=== PATIENT | male | born 1945 | race Caucasian/White ===

== ENCOUNTER → 2016-11-14 | Outpatient (CLI) | payer MEDICARE | END | disposition home or self-care (01) | LOC: LAB 14:18 | DX: S99.921A Unspecified injury of right foot, initial encounter (principal); X58.XXXA Exposure to other specified factors, initial encounter; Y92.9 Unspecified place or not applicable ==

== ENCOUNTER → 2017-02-02 | Outpatient (CLI) | payer MEDICARE ==
--- NOTE | 2017-02-02 10:55 | Diagnostic Imaging Report ---
Indications: Right hallux pain and swelling, history of fracture October 2016 Technique: 3 views right foot Findings: Comparison: No prior examinations available for comparison There is oblique fracture through the base of the first distal phalanx, extending to the proximal articular surface. The proximal fragment maintains alignment with the middle phalanx, with mild asymmetric widening of the interphalangeal joint space. The distal fragment demonstrates partial bone with lateral and plantar displacement. Fracture cleft is lucent with marginal irregularity. Some periosteal callus formation is suggested on lateral view. Surrounding soft tissues are swollen. No additional fracture, dislocation, lytic destruction, periosteal reaction, soft tissue swelling/foreign body/gas or other acute change identified IMPRESSION: Delayed union of displaced intra-articular fracture base first distal phalanx with fracture margin irregularity and surrounding soft tissue swelling. Underlying infection not excludable.
== END | disposition home or self-care (01) ==
LOC: RAD 10:03
DX: M25.571 Pain in right ankle and joints of right foot (principal); S92.421G Displaced fracture of distal phalanx of right great toe, subsequent encounter for fracture with delayed healing; X58.XXXD Exposure to other specified factors, subsequent encounter

== ENCOUNTER → 2017-02-04 | Outpatient (CLI) | payer MEDICARE ==
--- NOTE | 2017-02-04 13:39 | Diagnostic Imaging Report ---
Indication: Right great toe fracture. Possible infection causing slow healing Technique: Sagittal, axial, and coronal T1 fast spin echo and FSE STIR images of the forefoot. Precontrast and postcontrast coronal and sagittal T1 fat saturated images of the forefoot Comparison: Reference made to plain radiographs dated 02/02/2017 Findings: There is a fracture deformity of the first distal phalanx. This is displaced, better visualized on recent plain radiographs. The proximal fragment demonstrates markedly decreased T1 signal and markedly increased STIR signal. The distal fragment demonstrates increased STIR signal, some abnormal decreased T1 signal but much less striking than that involving the proximal fragment. Abnormal signal is seen in the first proximal phalanx. There is diffuse abnormal STIR signal, involving nearly the entire phalanx, sparing only a small portion of the base. There is less extensive T1 signal decrease, primarily involving the distal shaft and head. There is considerable circumferential edema of the soft tissues surrounding the first phalanx. The precontrast T1 fat-saturated images demonstrate considerable edema of the distal phalanx on both sides of the fracture, somewhat less striking edema of the proximal phalanx. Moderate contrast enhancement of the proximal phalanx and considerable contrast enhancement of the distal phalanx is demonstrated. There is enhancement of the surrounding soft tissues, but no findings to suggest the presence of focal drainable fluid collection. There is what appears to be a soft tissue ulcer on the plantar surface superficial to the head of the fourth metacarpal. No other marrow signal abnormality is demonstrated. There is mild soft tissue edema elsewhere within the forefoot, more within the muscular compartments and the superficial compartment. Impression: Fracture of the first distal phalanx, better characterized on plain radiograph of 2 days earlier Marked marrow edema of the first distal phalanx. This certainly could be due solely to the presence of the fracture. However, giving the intensity of the signal abnormality, the presence of fairly intense contrast enhancement, and the evidence of surrounding soft tissue cellulitis, findings are concerning for osteomyelitis Marrow edema of the first proximal phalanx. Given the absence of evidence of trauma, evidence of surrounding soft tissue cellulitis, and presence of contrast enhancement, this finding is concerning for osteomyelitis Evidence of cellulitis, as described above. This appears to be superficial in the great toe, but appears to involve the deep compartments in the metacarpal region. No drainable fluid collection demonstrated Evidence of soft tissue ulcer on the plantar surface adjacent to the fourth metatarsal head. Correlate with clinical findings
== END | disposition home or self-care (01) ==
LOC: MRI 09:49
DX: S92.411G Displaced fracture of proximal phalanx of right great toe, subsequent encounter for fracture with delayed healing (principal); X58.XXXD Exposure to other specified factors, subsequent encounter; M86.9 Osteomyelitis, unspecified
CPT/HCPCS: 73723; A9585

== ENCOUNTER 2017-09-04 11:08 | Outpatient (CLI) | payer MEDICARE ==
--- NOTE | 2017-09-04 13:51 | Diagnostic Imaging Report ---
Indication: Chest pain Technique: Continuous helical transaxial imaging of the chest was obtained from the thoracic inlet to the upper abdomen. No intravenous contrast was administered. Coronal 2-D reformats were also obtained. Total Dose length Product (DLP): [address] Dose Index Volume (CTDIvol): 0.15, 17.67 mGy Comparison: none Findings: Lungs are clear. No infiltrate or interstitial disease identified. No pleural effusion or adenopathy identified. The heart is unremarkable. Aorta shows mild neural calcification. Degenerative changes of the thoracic spine are noted characterized by endplate spurs and some narrowing of intervertebral discs. Impression: No acute findings. Degenerative changes of the thoracic spine Mild atherosclerotic disease The CT scanner at [facility] is accredited by the [employer] and the scans are performed using dose optimization techniques as appropriate to a performed exam including Automatic Exposure control.
== END 2017-09-04 13:08 | disposition home or self-care (01) ==
LOC: CAT 11:08
DX: R07.9 Chest pain, unspecified (principal); I25.10 Atherosclerotic heart disease of native coronary artery without angina pectoris
CPT/HCPCS: 71250

== ENCOUNTER 2020-02-20 14:39 | Outpatient (CLI) | payer MEDICARE ==
--- NOTE | 2020-02-20 16:00 | Diagnostic Imaging Report ---
Indication: Cough Technique: 2 views of the chest Comparison: And Findings: Lungs and pleural spaces are clear. The heart size is normal. Basilar nodular opacities presumably represent nipple shadows, also visible on the lateral view as such. There are degenerative spondylosis changes Impression: No acute process
== END 2020-02-20 16:39 | disposition home or self-care (01) ==
LOC: RAD 14:39
DX: R05 Cough (principal); M47.9 Spondylosis, unspecified
CPT/HCPCS: 71046

== ENCOUNTER → 2020-03-21 | Outpatient (CLI) | payer MEDICARE ==
--- NOTE | 2020-03-21 17:36 | Diagnostic Imaging Report ---
Indication: Chest pain Technique: One view of the chest Comparison: 02/20/2020 Findings: Lungs and pleural spaces are clear. Heart size is normal. No significant change Impression: No acute process
== END | disposition home or self-care (01) ==
LOC: RAD 15:06
DX: R07.9 Chest pain, unspecified (principal)
CPT/HCPCS: 71046